=== PATIENT | female | born 1965 | race Caucasian/White ===

== ENCOUNTER → 2016-02-23 | Outpatient (CLI) | payer MEDICAID | LOC: RAD 16:19 | PROVIDERS: ATTEND Family Medicine | DX: M77.11 Lateral epicondylitis, right elbow (principal) ==

== ENCOUNTER 2016-03-28 09:28 | Emergency (ER) | payer MEDICAID ==
[2016-03-28] MEDS ORDERED: LIDOCAINE 5% (700 MG) TRANSDERMAL ADH..PATCH TP ONE (11:24)
--- NOTE | 2016-03-28 11:27 | ER Document Report ---
ED General - General Chief Complaint: Back Pain Stated Complaint: HIP LEG AND BACK PAIN TRAVEL OUTSIDE OF THE [place] IN LAST 30 DAYS: No - HPI Patient complains to provider of: right hip right back pain Notes: Patient states fall Sunday prior to arrival states ambulatory during the time however increasing pain and difficulty any ablation. Patient states she took a Percocet at home with no relief of her pain therefore came to the ER for further evaluation denies any loss consciousness during this fall denies any bowel or bladder incontinence denies numbness or tingling. - Related Data Allergies/Adverse Reactions: aspirin Allergy (Verified 03/28/16 10:05) Sulfa (Sulfonamide Antibiotics) Allergy (Verified 03/28/16 10:05) codeine [Codeine] Adverse Reaction (Verified 03/28/16 10:05) Past Medical History - Social History Smoking Status: Current Every Day Smoker Chew tobacco use (# tins/day): No Frequency of alcohol use: None Family History: Reviewed & Not Pertinent Patient has suicidal ideation: No Patient has homicidal ideation: No Renal/ Medical History: Denies: Hx Peritoneal Dialysis Past Surgical History: Reports: Hx Section - X3, Hx Cholecystectomy, Hx Tubal Ligation - Immunizations Immunizations up to date: Yes Hx Diphtheria, Pertussis, Tetanus Vaccination: Yes - 2012- tetanus Review of Systems - Review of Systems Constitutional: No symptoms reported EENT: No symptoms reported Cardiovascular: No symptoms reported Respiratory: No symptoms reported Gastrointestinal: No symptoms reported Genitourinary: No symptoms reported Female Genitourinary: No symptoms reported Musculoskeletal: Back pain Skin: No symptoms reported Hematologic/Lymphatic: No symptoms reported Neurological/Psychological: No symptoms reported -: Yes All other systems reviewed and negative Physical Exam - Vital signs Vitals: Temp Pulse Resp BP Pulse Ox 98.2 F 67 18 122/77 96 03/28/16 09:58 03/28/16 09:58 03/28/16 09:58 03/28/16 09:58 03/28/16 09:58 Interpretation: Normal - General General appearance: Appears well, Alert - HEENT Head: Normocephalic, Atraumatic Eyes: Normal Pupils: PERRL - Respiratory Respiratory status: No respiratory distress Chest status: Nontender Breath sounds: Normal Chest palpation: Normal - Cardiovascular Rhythm: Regular Heart sounds: Normal auscultation Murmur: No - Abdominal Inspection: Normal Distension: No distension Bowel sounds: Normal Tenderness: Nontender Organomegaly: No organomegaly - Back Back: Normal, Tender - Right paraspinal pain minimal pain to palpation of the right hip. No deformities no concerning etiologies - Extremities General upper extremity: Normal inspection, Nontender, Normal color, Normal ROM , Normal temperature General lower extremity: Normal inspection, Nontender, Normal color, Normal ROM , Normal temperature, Normal weight bearing. No: Nick's sign - Neurological Neuro grossly intact: Yes Cognition: Normal Orientation: AAOx4 Zoran Coma Scale Eye Opening: Spontaneous [place] Coma Scale Verbal: Oriented [place] Coma Scale Motor: Obeys Commands [place] Coma Scale Total: 15 Speech: Normal Motor strength normal: LUE, RUE, LLE, RLE Sensory: Normal Knee - Reflex grade: 2 = Normal - Psychological Associated symptoms: Normal affect, Normal mood - Skin Skin Temperature: Warm Skin Moisture: Dry Skin Color: Normal Course - Re-evaluation Re-evalutation: 03/28/16 20:40 Review the patient's narcotic database list show multiple prescriptions by her primary care provider Dr. Croft. Recommend patient follow-up with him for further pain control other than anti-inflammatories Tylenol and Lidoderm patches here otherwise states examination benign will discharge home The patient presents with low back pain without signs of spinal cord compression , cauda equina syndrome, infection, aneurysm, or other serious etiology. The patient is neurologically intact. Given the extremely low risk of these diagnoses further testing and evaluation for these possibilities does not appear to be indicated at this time. The patient has been instructed to return if the symptoms worsen or change in any way. .. - Vital Signs Vital signs: Temp Pulse Resp BP Pulse Ox 97.9 F 66 18 128/72 H 99 03/28/16 11:32 03/28/16 11:32 03/28/16 11:32 03/28/16 11:32 03/28/16 11:32 Discharge - Discharge Clinical Impression: Right leg pain Right low back pain Qualifiers: Chronicity: acute Sciatica presence: without sciatica Qualified Code(s): M54.5 - Low back pain Condition: Good Disposition: HOME, SELF-CARE Instructions: Ice Packs ([facility]), Low Back Pain ([facility]), Muscle Strain ([facility]), Warm Packs ([facility]), Anti-Inflammatory Medication ([facility]) Additional Instructions: Please follow-up with your primary care physician for further evaluation of your low back pain. You can take Tylenol and Motrin for your pain control at home. Return to the ER symptoms worsen. Prescriptions: Lidocaine [Lidoderm 5% (700 mg) Transdermal Patch] 1 patch TP DAILY #30 adh..patch Forms: Return to Work Referrals: OMAR CROFT DO [Primary Care Provider] - Follow up as needed
[2016-03-28 11:33] VITALS: BP 128/72
== END 2016-03-28 11:33 | disposition home or self-care (01) ==
LOC: ER 09:28
DX: M79.604 Pain in right leg (principal); M54.5 Low back pain; M54.9 Dorsalgia, unspecified; M25.551 Pain in right hip; F17.210 Nicotine dependence, cigarettes, uncomplicated
CPT/HCPCS: 99283; J3490

== ENCOUNTER 2017-05-26 06:32 | Observation (INO) | payer MEDICAID ==
--- NOTE | 2017-05-26 07:50 | ER Document Report ---
ED General - General Chief Complaint: Chest Pain > 30 Stated Complaint: CHEST PAIN Time Seen by Provider: 05/26/17 06:34 Mode of Arrival: Medic Information source: Patient Notes: 51-year-old female presents with complaints of chest pressure sensation associated with diaphoresis shortness of breath. Patient denies any fevers or chills notes pressure started an hour prior to arrival. Patient denies any similar episodes except when she was admitted here 3-4 years ago. Patient states she had a heart attack at that time but that she was not stented nor does she have a heart catheterization TRAVEL OUTSIDE OF THE [place] IN LAST 30 DAYS: No - HPI Onset: Just prior to arrival Onset/Duration: Sudden Quality of pain: Pressure Severity: Mild Pain Level: 1 Associated symptoms: Chest pain, Shortness of breath Exacerbated by: Denies Relieved by: Other - Nitroglycerin Similar symptoms previously: Yes Recently seen / treated by doctor: No - Related Data Allergies/Adverse Reactions: aspirin Allergy (Verified 03/28/16 10:05) Sulfa (Sulfonamide Antibiotics) Allergy (Verified 03/28/16 10:05) codeine [Codeine] Adverse Reaction (Verified 03/28/16 10:05) Past Medical History - Social History Smoking Status: Current Every Day Smoker Cigarette use (# per day): Yes Chew tobacco use (# tins/day): No Smoking Education Provided: Yes - Patient counselled regarding cessation for 4 minutes Frequency of alcohol use: None Family History: Reviewed & Not Pertinent Patient has suicidal ideation: No Patient has homicidal ideation: No - Past Medical History Cardiac Medical History: Reports: Hx Hypertension Renal/ Medical History: Denies: Hx Peritoneal Dialysis Past Surgical History: Reports: Hx Section - X3, Hx Cholecystectomy, Hx Tubal Ligation - Immunizations Immunizations up to date: Yes Hx Diphtheria, Pertussis, Tetanus Vaccination: Yes - 2012- tetanus Review of Systems - Review of Systems Notes: REVIEW OF SYSTEMS: CONSTITUTIONAL : Admits to sweating EENT: Denies eye, ear, throat, or mouth pain or symptoms. Denies nasal or sinus congestion or discharge. Denies throat, tongue, or mouth swelling or difficulty swallowing. CARDIOVASCULAR: Admits to chest pain RESPIRATORY: Admits shortness of breath GASTROINTESTINAL: Denies abdominal pain or distention. Denies nausea, vomiting , or diarrhea. Denies blood in vomitus, stools, or per rectum. Denies black, tarry stools. Denies constipation. GENITOURINARY: Denies difficulty urinating, painful urination, burning, frequency, blood in urine, or discharge. FEMALE GENITOURINARY: Denies vaginal bleeding, heavy or abnormal periods, irregular periods. Denies vaginal discharge or odor. MUSCULOSKELETAL: Denies back or neck pain or stiffness. Denies joint pain or swelling. SKIN: Denies rash, lesions or sores. HEMATOLOGIC : Denies easy bruising or bleeding. LYMPHATIC: Denies swollen, enlarged glands. NEUROLOGICAL: Denies confusion or altered mental status. Denies passing out or loss of consciousness. Denies dizziness or lightheadedness. Denies headache. Denies weakness or paralysis or loss of use of either side. Denies problems with gait or speech. Denies sensory loss, numbness, or tingling. Denies seizures. PSYCHIATRIC: Denies anxiety or stress. Denies depression, suicidal ideation, or homicidal ideation. ALL OTHER SYSTEMS REVIEWED AND NEGATIVE. PHYSICAL EXAMINATION: GENERAL: Well-appearing, well-nourished and in no acute distress. HEAD: Atraumatic, normocephalic. EYES: Pupils equal round and reactive to light, extraocular movements intact, conjunctiva are normal. ENT: Nares patent, oropharynx clear without exudates. Moist mucous membranes. NECK: Normal range of motion, supple without lymphadenopathy LUNGS: Breath sounds clear to auscultation bilaterally and equal. No wheezes rales or rhonchi. HEART: Regular rate and rhythm without murmurs ABDOMEN: Soft, nontender, nondistended abdomen. No guarding, no rebound. No masses appreciated. Female : deferred Musculoskeletal: Normal range of motion, no pitting or edema. No cyanosis. NEUROLOGICAL: Cranial nerves grossly intact. Normal speech, normal gait. Normal sensory, motor exams PSYCH: Normal mood, normal affect. SKIN: Warm, Dry, normal turgor, no rashes or lesions noted. Dictation was performed using [employer] voice recognition software Physical Exam - Vital signs Vitals: Resp 19 05/26/17 06:33 Course - Re-evaluation Re-evalutation: 05/26/17 07:49 Evaluation is quite benign at this time, patient is resting comfortably is pain- free, I did review her previous discharge and it appears they related her chest pain to anxiety no heart attack 05/26/17 08:51 lab workup notes no significant abnormality, patient looks well is in no distress at this time, patient will be admitted to the hospital service for observation - Vital Signs Vital signs: Temp Pulse Resp BP Pulse Ox 98.2 F 15 112/66 100 05/26/17 07:07 05/26/17 08:10 05/26/17 08:10 05/26/17 08:10 - Laboratory Result Diagrams: 05/26/17 06:45 05/26/17 06:45 Laboratory results interpreted by me: 05/26/17 05/26/17 06:45 06:45 WBC 12.3 H RDW 14.1 H Chloride 109 H - Diagnostic Test Radiology reviewed: Image reviewed - No acute abnormality, Reports reviewed - EKG Interpretation by Me EKG shows normal: Sinus rhythm, [place], Intervals, QRS Complexes Discharge - Discharge Clinical Impression: Chest pain Qualifiers: Chest pain type: unspecified Qualified Code(s): R07.9 - Chest pain, unspecified Hyperlipidemia Qualifiers: Hyperlipidemia type: unspecified Qualified Code(s): E78.5 - Hyperlipidemia, unspecified Condition: Stable Disposition: ADMITTED OBSERVATION Admitting Provider: Hospitalist Unit Admitted: Telemetry Referrals: OMAR REEVES DO [Primary Care Provider] - Follow up as needed
[2017-05-26 08:24] LABS: ABSOLUTE BASOPHILS # (AUTO) 0.1 10^3/uL (0.0-0.2); ABSOLUTE EOSINOPHILS # (AUTO) 0.2 10^3/uL (0.0-0.6); ABSOLUTE LYMPHOCYTES (AUTO) 3.3 10^3/uL (0.5-4.7); ABSOLUTE MONOCYTES (AUTO) 0.8 10^3/uL (0.1-1.4); ABSOLUTE NEUT (AUTO) 7.9 10^3/uL (1.7-8.2); ALANINE AMINOTRANSFERASE 29 U/L (9-52); ALBUMIN 4.1 g/dL (3.5-5.0); ALKALINE PHOSPHATASE 115 U/L (38-126); ANION GAP 7 (5-19); ASPARTATE AMINO TRANSFERASE 20 U/L (14-36); BASOPHILS % (AUTO) 0.7 % (0-2); BILIRUBIN,DIRECT 0.2 mg/dL (0.0-0.4); BILIRUBIN,TOTAL 0.6 mg/dL (0.2-1.3); BLOOD UREA NITROGEN 14 mg/dL (7-20); CALCIUM 9.6 mg/dL (8.4-10.2); CARBON DIOXIDE 26 mmol/L (22-30); CHLORIDE 109 mmol/L (98-107); CREATINE KINASE 74 U/L (30-135); EOSINOPHILS % (AUTO) 1.7 % (0-6); GLUCOSE 101 mg/dL (75-110); HEMATOCRIT 41.5 % (36.0-47.0); HEMOGLOBIN 13.6 g/dL (12.0-15.5); LYMPHOCYTES % (AUTO) 26.8 % (13-45); MEAN CORPUSCULAR HEMOGLOBIN 27.1 pg (27.0-33.4); MEAN CORPUSCULAR HGB CONC 32.9 g/dL (32.0-36.0); MEAN CORPUSCULAR VOLUME 82 fl (80-97); MONOCYTES % (AUTO) 6.7 % (3-13); PLATELET COUNT 373 10^3/uL (150-450); POTASSIUM 4.1 mmol/L (3.6-5.0); RED BLOOD COUNT 5.03 10^6/uL (3.72-5.28); RED CELL DISTRIBUTION WIDTH 14.1 % (11.5-14.0); SEGMENTED NEUTROPHILS % (AUTO) 64.1 % (42-78); SODIUM 141.8 mmol/L (137-145); TOTAL CELLS COUNTED % (AUTO) 100 %; TOTAL PROTEIN 6.7 g/dL (6.3-8.2); WHITE BLOOD COUNT 12.3 10^3/uL (4.0-10.5)
[2017-05-26 08:36] LABS: CREATINE KINASE MB 0.62 ng/mL (<4.55)
[2017-05-26 08:37] LABS: TROPONIN I < 0.012 ng/mL
--- NOTE | 2017-05-26 08:49 | RADIOLOGY REPORT (SQ) ---
EXAM DESCRIPTION: CHEST SINGLE VIEW COMPLETED DATE/TIME: 05/26/2017 8:23 am REASON FOR STUDY: chest pain COMPARISON: None. EXAM PARAMETERS: NUMBER OF VIEWS: One view. TECHNIQUE: Single frontal radiographic view of the chest acquired. RADIATION DOSE: NA LIMITATIONS: None. FINDINGS: LUNGS AND PLEURA: No opacities, masses or pneumothorax. No pleural effusion. MEDIASTINUM AND HILAR STRUCTURES: No masses. Contour normal. HEART AND VASCULAR STRUCTURES: Heart normal in size. Normal vasculature. BONES: No acute findings. HARDWARE: None in the chest. OTHER: No other significant finding. IMPRESSION: NO ACUTE RADIOGRAPHIC FINDING IN THE CHEST. TECHNICAL DOCUMENTATION: JOB ID: [id number] [employer]- All Rights Reserved Reading location - IP/workstation name: [email or web address]
[2017-05-26] MEDS ORDERED: NITROGLYCERIN 0.4 MG/TAB 25 TAB/BOTTLE SL PRN (08:52)
[2017-05-26] MEDS ORDERED: ACETAMINOPHEN 325 MG TABLET PO PRN (08:52)
[2017-05-26] MEDS ORDERED: ZOLPIDEM TARTRATE 5 MG TABLET PO PRN (08:52)
[2017-05-26] MEDS ORDERED: ALBUTEROL SULFATE 0.083% NEB 2.5 MG/3 ML AMPUL NEB PRN (08:52)
[2017-05-26] MEDS ORDERED: ONDANSETRON HCL INJ/PF 4 MG/2 ML SDV IV PRN (08:52)
[2017-05-26] MEDS: AZITHROMYCIN 250 MG TABLET PO SCH (09:50)
[2017-05-26] MEDS: DOCUSATE SODIUM 100 MG CAPSULE PO SCH (09:50)
--- NOTE | 2017-05-26 10:09 | EKG REPORT ---
SEVERITY:- NORMAL ECG - SINUS RHYTHM : Confirmed by: Margaret Haider 26-May-2017 10:08:02
[2017-05-26] MEDS: IPRATROPIUM/ALBUTEROL 0.5-2.5 MG/3 ML AMPUL NEB SCH ×2 (13:41→20:50)
[2017-05-26] MEDS: HEPARIN SOD (PORCINE) 5,000 UNIT/ML 1 ML SYRINGE SUBCUT SCH ×2 (14:29→21:21)
[2017-05-26] MEDS: OXYCODONE-ACETAMINOPHEN 5-325 MG TABLET PO PRN ×2 (15:08→19:35)
[2017-05-26] MEDS ORDERED: (PENDING PHARMACY ID) (Trazodone Hcl [Desyrel] 150 MG) PO PRN (16:12)
[2017-05-26] MEDS ORDERED: (PENDING PHARMACY ID) (Hydroxyzine Hcl [Atarax 25 Mg Tablet] 1 TAB) PO PRN (16:12)
--- NOTE | 2017-05-26 16:14 | PDOC H&P ---
History of Present Illness Admission Date/PCP: 05/26/17 08:58 OMAR REEVES DO Patient complains of: Chest pain prior to presenting emergency room History of Present Illness: ANISA CORBETT is a 51 year old female arrived to ED via ambulance on the day of evaluation. Patient states that while at work all of a sudden felt pain underneath her left breast that would go between the medial of her shoulder blades. It was accompanied by nausea and shortness of breath. She also relates having some sweatiness and. It was so intense that she had to step outside a coworker recommended her to smoke a cigarette however she felt that that was not safe. Since persistent called EMS. Pain subsided after she was given 1 nitro sublingual. Patient states that she had similar episode 3 years ago and she was hospitalized at this facility. Nuclear stress test was done and it was negative.She was diagnosed at that time as having high cholesterol. No medication had been prescribed although discussed the finding with her primary care provider. Patient smokes a half a pack of cigarettes daily. She also admits history of high blood pressure. Due to comordities the hospitalist service was consulted and prompted to admit. Past Medical History Cardiac Medical History: Reports: Hypertension Pulmonary Medical History: Reports: None EENT Medical History: Reports: None Neurological Medical History: Reports: None Endocrine Medical History: Reports: None Renal/ Medical History: Reports: None Malignancy Medical History: Reports: None GI Medical History: Reports: None Musculoskeltal Medical History: Reports: None Skin Medical History: Reports: None Psychiatric Medical History: Reports: Tobacco Dependency Traumatic Medical History: Reports: None Hematology: Reports: None Past Surgical History Past Surgical History: Reports: Section - X3, Cholecystectomy, Tubal Ligation Social History Information Source: Patient Smoking Status: Current Every Day Smoker Frequency of Alcohol Use: None Hx Recreational Drug Use: No Drugs: None - Advance Directive Resuscitation Status: Full Code Family History Family History: Reviewed & Not Pertinent, Hypertension Parental Family History Reviewed: Yes Children Family History Reviewed: Yes Sibling(s) Family History Reviewed.: Yes Medication/Allergy Home Medications: Dextroamphetamine/Amphetamine [Adderall 20 mg Tablet] 1 tab PO TID 08/19/14 Hydroxyzine HCl [Atarax 25 mg Tablet] 1 tab PO Q8HP PRN 05/26/17 Trazodone HCl [Desyrel] 150 mg PO HSP PRN 05/26/17 Venlafaxine HCl 37.5 mg PO BID 05/26/17 Allergies/Adverse Reactions: aspirin Allergy (Verified 05/26/17 15:32) Sulfa (Sulfonamide Antibiotics) Allergy (Verified 05/26/17 15:32) VOMITING codeine [Codeine] Adverse Reaction (Verified 05/26/17 15:32) Hives Review of Systems Constitutional: PRESENT: weakness, other - Sweatiness Ears: ABSENT: hearing changes Nose, Mouth, and Throat: ABSENT: mouth pain, sore throat Cardiovascular: PRESENT: chest pain. ABSENT: edema Gastrointestinal: PRESENT: nausea. ABSENT: abdominal pain Genitourinary: ABSENT: hematuria Neurological: PRESENT: weakness Endocrine: ABSENT: polyphagia, polyuria Physical Exam Vital Signs: Temp Pulse Resp BP Pulse Ox 98.1 F 17 127/66 H 99 05/26/17 10:01 05/26/17 10:01 05/26/17 10:01 05/26/17 10:01 General appearance: PRESENT: no acute distress, cooperative, well-developed, well-nourished Head exam: PRESENT: normocephalic Eye exam: PRESENT: conjunctiva pink, EOMI, PERRLA Mouth exam: PRESENT: moist Teeth exam: PRESENT: poor dentation Neck exam: PRESENT: full ROM. ABSENT: JVD, lymphadenopathy, tenderness Respiratory exam: PRESENT: clear to auscultation [place], decreased breath sounds Cardiovascular exam: PRESENT: RRR. ABSENT: diastolic murmur, systolic murmur GI/Abdominal exam: PRESENT: normal bowel sounds, soft. ABSENT: tenderness Extremities exam: PRESENT: full ROM. ABSENT: pedal edema Musculoskeletal exam: PRESENT: ambulatory Neurological exam: PRESENT: alert, awake, oriented to person, oriented to place , oriented to time, oriented to situation, CN II-XII grossly intact Psychiatric exam: PRESENT: appropriate affect, normal mood Skin exam: PRESENT: intact, normal color Results Impressions: Chest X-Ray 05/26/17 07:46 IMPRESSION: NO ACUTE RADIOGRAPHIC FINDING IN THE CHEST. Assessment & Plan - Diagnosis (1) Chest pain Qualifiers: Chest pain type: unspecified Qualified Code(s): R07.9 - Chest pain, unspecified Is this a current diagnosis for this admission?: Yes Plan: Appears to be atypical in nature however she does have a history of hyperlipidemia and smoking. Will be admitted to telemetry unit, trend troponin and order nuclear stress test (2) Hyperlipidemia Qualifiers: Hyperlipidemia type: unspecified Qualified Code(s): E78.5 - Hyperlipidemia , unspecified Is this a current diagnosis for this admission?: Yes Plan: Patient will be placed on Lipitor (3) Leukocytosis Is this a current diagnosis for this admission?: Yes Plan: Patient has been having productive cough, runny nose for a couple of days. Will place patient on DuoNeb's and Zithromax (4) Tobacco use disorder Is this a current diagnosis for this admission?: Yes Plan: To place a nicotine patch. Patient educated about quitting smoking - Time Time Spent: 30 to 50 Minutes Medications reviewed and adjusted accordingly: Yes Anticipated discharge: Home Within: within 24 hours - Inpatient Certification Based on my medical assessment, after consideration of the patient's comorbidities, presenting symptoms, or acuity I expect that the services needed warrant INPATIENT care.: Yes I certify that my determination is in accordance with my understanding of Medicare's requirements for reasonable and necessary INPATIENT services [42 CFR 412.3e].: Yes Medical Necessity: Need Close Monitoring Due to Risk of Patient Decompensation, Need For Continuous Telemetry Monitoring
[2017-05-26] MEDS ORDERED: TRAZODONE HCL 50 MG TABLET PO PRN (16:15)
[2017-05-26] MEDS ORDERED: HYDROXYZINE HCL 10 MG TABLET PO PRN (16:16)
[2017-05-26] MEDS ORDERED: (PENDING PHARMACY ID) (Venlafaxine Hcl [Venlafaxine Hcl] 37.5 MG) PO SCH (18:00)
[2017-05-26] MEDS ORDERED: (PENDING PHARMACY ID) (Dextroamphetamine/Amphetamine [Adderall 20 Mg Tablet] 1 TAB) PO SCH (18:00)
[2017-05-26] MEDS: NICOTINE 21 MG/24 HR PATCH.TD24 TD PRN (19:26)
[2017-05-26] MEDS: ATORVASTATIN CALCIUM 40 MG TABLET PO SCH (21:21)
[2017-05-26] MEDS ORDERED: VENLAFAXINE HCL 25 MG TABLET PO SCH (22:00)
[2017-05-27 04:48] LABS: ABSOLUTE BASOPHILS # (AUTO) 0.1 10^3/uL (0.0-0.2); ABSOLUTE EOSINOPHILS # (AUTO) 0.3 10^3/uL (0.0-0.6); ABSOLUTE LYMPHOCYTES (AUTO) 5.5 10^3/uL (0.5-4.7); ABSOLUTE MONOCYTES (AUTO) 0.8 10^3/uL (0.1-1.4); ABSOLUTE NEUT (AUTO) 4.2 10^3/uL (1.7-8.2); BASOPHILS % (AUTO) 1.2 % (0-2); EOSINOPHILS % (AUTO) 2.8 % (0-6); HEMATOCRIT 39.9 % (36.0-47.0); HEMOGLOBIN 13.1 g/dL (12.0-15.5); LYMPHOCYTES % (AUTO) 50.2 % (13-45); MEAN CORPUSCULAR HEMOGLOBIN 26.9 pg (27.0-33.4); MEAN CORPUSCULAR HGB CONC 32.9 g/dL (32.0-36.0); MEAN CORPUSCULAR VOLUME 82 fl (80-97); MONOCYTES % (AUTO) 7.4 % (3-13); PLATELET COUNT 320 10^3/uL (150-450); RED BLOOD COUNT 4.87 10^6/uL (3.72-5.28); RED CELL DISTRIBUTION WIDTH 13.7 % (11.5-14.0); SEGMENTED NEUTROPHILS % (AUTO) 38.4 % (42-78); TOTAL CELLS COUNTED % (AUTO) 100 %; WHITE BLOOD COUNT 11.1 10^3/uL (4.0-10.5)
[2017-05-27 05:10] LABS: ANION GAP 9 (5-19); BLOOD UREA NITROGEN 12 mg/dL (7-20); CALCIUM 9.2 mg/dL (8.4-10.2); CARBON DIOXIDE 23 mmol/L (22-30); CHLORIDE 110 mmol/L (98-107); GLUCOSE 91 mg/dL (75-110); POTASSIUM 4.2 mmol/L (3.6-5.0); SODIUM 141.5 mmol/L (137-145)
[2017-05-27] MEDS: HEPARIN SOD (PORCINE) 5,000 UNIT/ML 1 ML SYRINGE SUBCUT SCH ×3 (06:04→21:04)
[2017-05-27] MEDS: IPRATROPIUM/ALBUTEROL 0.5-2.5 MG/3 ML AMPUL NEB SCH ×3 (07:47→20:38)
[2017-05-27] MEDS: OXYCODONE-ACETAMINOPHEN 5-325 MG TABLET PO PRN (09:03)
[2017-05-27] MEDS: AZITHROMYCIN 250 MG TABLET PO SCH (09:04)
[2017-05-27] MEDS: DOCUSATE SODIUM 100 MG CAPSULE PO SCH (09:04)
[2017-05-27] MEDS ORDERED: VENLAFAXINE HCL 25 MG TABLET PO SCH (09:28)
[2017-05-27] MEDS ORDERED: LANSOPRAZOLE 30 MG TAB.RAP.DR PO ONE (10:15)
[2017-05-27] MEDS ORDERED: VENLAFAXINE HCL 75 MG TABLET PO ONE (11:30)
[2017-05-27] MEDS ORDERED: TIZANIDINE HCL 4 MG TABLET PO ONE (11:30)
--- NOTE | 2017-05-27 11:30 | RADIOLOGY REPORT (SQ) ---
EXAM DESCRIPTION: CERV SP 3 VIEW OR LESS COMPLETED DATE/TIME: 05/27/2017 10:51 am REASON FOR STUDY: neck pain COMPARISON: 05/31/2013 NUMBER OF VIEWS: Five views including obliques. TECHNIQUE: AP, lateral, obliques and odontoid radiographic images acquired of the cervical spine. LIMITATIONS: None. FINDINGS: MINERALIZATION: Normal. SEGMENTATION: Normal. ALIGNMENT: Normal. [place]: Maintained height. No fracture or worrisome bone lesion. DISCS: Disc space narrowing and osteophyte formation C6-7. POSTERIOR ELEMENTS: Pedicles and facets are intact. No posterior arch defects. Facet arthropathy is present. FORAMINA: Narrowed at the levels of maximal disc and facet disease. HARDWARE: None in the spine. PARASPINAL SOFT TISSUES: Normal. OTHER: No other significant finding. IMPRESSION: Cervical disc disease C6- 7. No significant change. TECHNICAL DOCUMENTATION: JOB ID: [id number] [employer]- All Rights Reserved Reading location - IP/workstation name: [email or web address]
--- NOTE | 2017-05-27 12:06 | PDOC PROGRESS REPORT ---
Subjective Progress Note for:: 05/27/17 Subjective:: Patient states the heart chest pain while going on for the stress test. Accordingly problem started after she ate a sausage. The pain resolved by the time which she returned to the floor but has been having headache and neck pain. Patient also complains of pain in the middle of her back. Reason For Visit: CHEST PAIN Physical Exam Vital Signs: Temp Pulse Resp BP Pulse Ox 97.8 F 66 12 104/60 100 05/27/17 09:02 05/27/17 09:02 05/27/17 09:02 05/27/17 09:02 05/27/17 09:02 Intake & Output 05/26/17 05/27/17 05/28/17 06:59 06:59 06:59 Intake Total 970 Balance 970 Weight 66.4 kg General appearance: PRESENT: cooperative, well-developed, well-nourished Head exam: PRESENT: atraumatic, normocephalic Eye exam: PRESENT: conjunctiva pink, EOMI, PERRLA Ear exam: PRESENT: normal external ear exam Neck exam: PRESENT: full ROM, tenderness - Pain upon palpation paracervical muscles and trapezius. ABSENT: JVD, lymphadenopathy Respiratory exam: PRESENT: clear to auscultation [place] Cardiovascular exam: PRESENT: RRR. ABSENT: diastolic murmur, systolic murmur GI/Abdominal exam: PRESENT: normal bowel sounds, soft. ABSENT: tenderness Extremities exam: PRESENT: full ROM. ABSENT: pedal edema, tenderness Musculoskeletal exam: PRESENT: ambulatory Neurological exam: PRESENT: alert, awake, oriented to person, oriented to place , oriented to time, oriented to situation, CN II-XII grossly intact Skin exam: PRESENT: normal color Results Laboratory Results: 05/27/17 03:47 05/27/17 03:47 05/27/17 05/27/17 03:47 03:47 WBC 11.1 H RBC 4.87 Hgb 13.1 Hct 39.9 MCV 82 MCH 26.9 L MCHC 32.9 RDW 13.7 Plt Count 320 Seg Neutrophils % 38.4 L Lymphocytes % 50.2 H Monocytes % 7.4 Eosinophils % 2.8 Basophils % 1.2 Absolute Neutrophils 4.2 Absolute Lymphocytes 5.5 H Absolute Monocytes 0.8 Absolute Eosinophils 0.3 Absolute Basophils 0.1 Sodium 141.5 Potassium 4.2 Chloride 110 H Carbon Dioxide 23 Anion Gap 9 BUN 12 Creatinine 0.66 Est GFR ( Amer) > 60 Est GFR (Non-Af Amer) > 60 Glucose 91 Calcium 9.2 Magnesium 2.1 05/26/17 05/26/17 05/27/17 12:10 18:30 00:36 Troponin I < 0.012 < 0.012 < 0.012 Impressions: Chest X-Ray 05/26/17 07:46 IMPRESSION: NO ACUTE RADIOGRAPHIC FINDING IN THE CHEST. Assessment & Plan - Diagnosis (1) Chest pain Qualifiers: Chest pain type: unspecified Qualified Code(s): R07.9 - Chest pain, unspecified Is this a current diagnosis for this admission?: Yes Plan: Repeat troponins which I expect will be negative and expect to finalize test in a.m. To add PPI to cover for GI problems such as reflux (2) Hyperlipidemia Qualifiers: Hyperlipidemia type: unspecified Qualified Code(s): E78.5 - Hyperlipidemia , unspecified Is this a current diagnosis for this admission?: Yes Plan: Will continue Lipitor (3) Leukocytosis Qualifiers: Leukocytosis type: unspecified Qualified Code(s): D72.829 - Elevated white blood cell count, unspecified Is this a current diagnosis for this admission?: Yes Plan: Patient has been having productive cough, runny nose for a couple of days. Continue DuoNeb's and Zithromax (4) Tobacco use disorder Is this a current diagnosis for this admission?: Yes Plan: Continue nicotine patch. Patient educated about quitting smoking (5) Neck pain Is this a current diagnosis for this admission?: Yes Plan: Appears to be musculoskeletal. To muscle relaxer. To order cervical spine x- rays. - Time Time Spent with patient: 15-24 minutes Medications reviewed and adjusted accordingly: Yes Anticipated discharge: Home Within: within 24 hours - Inpatient Certification Based on my medical assessment, after consideration of the patient's comorbidities, presenting symptoms, or acuity I expect that the services needed warrant INPATIENT care.: Yes I certify that my determination is in accordance with my understanding of Medicare's requirements for reasonable and necessary INPATIENT services [42 CFR 412.3e].: Yes Medical Necessity: Need Close Monitoring Due to Risk of Patient Decompensation, Need For Continuous Telemetry Monitoring, Need for Pain Control
[2017-05-27] MEDS: TIZANIDINE HCL 4 MG TABLET PO SCH (17:56)
[2017-05-27] MEDS: NICOTINE 21 MG/24 HR PATCH.TD24 TD PRN (18:00)
[2017-05-27] MEDS: ATORVASTATIN CALCIUM 40 MG TABLET PO SCH (21:04)
[2017-05-27] MEDS: VENLAFAXINE HCL 75 MG TABLET PO SCH (21:10)
[2017-05-27] MEDS ORDERED: QUETIAPINE FUMARATE 25 MG TABLET PO SCH (22:00)
[2017-05-28] MEDS: HEPARIN SOD (PORCINE) 5,000 UNIT/ML 1 ML SYRINGE SUBCUT SCH ×2 (04:22→14:46)
[2017-05-28] MEDS ORDERED: LANSOPRAZOLE 30 MG TAB.RAP.DR PO SCH (06:00)
[2017-05-28] MEDS: IPRATROPIUM/ALBUTEROL 0.5-2.5 MG/3 ML AMPUL NEB SCH ×2 (08:14→13:39)
[2017-05-28] MEDS: TIZANIDINE HCL 4 MG TABLET PO SCH (10:09)
[2017-05-28] MEDS: AZITHROMYCIN 250 MG TABLET PO SCH (10:09)
[2017-05-28] MEDS: VENLAFAXINE HCL 75 MG TABLET PO SCH (10:10)
[2017-05-28] MEDS: DOCUSATE SODIUM 100 MG CAPSULE PO SCH (10:10)
[2017-05-28] MEDS ORDERED: AMINOPHYLLINE INJ/PF 250 MG/10 ML SDV IV ONE (10:57)
[2017-05-28] MEDS ORDERED: REGADENOSON INJ 0.4 MG/5 ML DISP.SYRIN IV ONE (10:59)
--- NOTE | 2017-05-28 11:21 | DRAGON STRESS TEST REPORT ---
INTRAVENOUS LEXISCAN CARDIOLITE STRESS TEST USING SINGLE PHOTON EMMISION COMPUTERIZED TOMOGRAPHIC. DATE OF PROCEDURE: May 28, 2017, INDICATION : Chest pain CARDIAC RISK FACTORS: Dyslipidemia, tobacco abuse RESTING EKG: Sinus rhythm without any baseline ST-T wave changes. STRESS EKG: No significant ST segment changes noted with LexiScan bolus REASON FOR TERMINATION: Protocol. PROCEDURE REPORT: Baseline heart rate 62 beats per minute with blood pressure of 113/66. Patient had no significant complaints. Patient was bolused with Lexiscan 0.4 mg intravenously followed by saline bolus. Heart rate at 2 minutes post bolus 114 with a blood pressure of 116/69. 3 minutes post bolus heart rate 73 with blood pressure of 112/65. No significant EKG changes were noted. Patient had no significant complaints during the procedure or postprocedure. Patient injected with Aminophyllin 75 mg at 3 minutes or later after Lexiscan bolus. CONCLUSIONS: Normal EKG and hemodynamic response to IV LexiScan. NUCLEAR DATA: At rest the patient was given 10.26 millicuries of technetium 99 sestamibi injected intravenously. As per protocol rest gated SPECT images were obtained. On day of stress test, the patient was given intravenous LexiScan at a dose of 0.4 mg in 5 mL intravenously, followed by flush with normal saline. Subsequently the stress dose of 32.4 millicuries of technetium 99 sestamibi was injected intravenously. As per protocol stress gated images were obtained. NUCLEAR INTERPRETATION: Both raw and processed data were used for interpretation. Visual, qualitative, computer-generated quantitative data was used. There was good myocardial uptake of technetium compound. Motion artifact and soft tissue attenuations were noted. Increased visceral uptake was noted. No definitive areas of transient perfusion defect noted, No definitive areas of fixed perfusion defect or scars noted. EKG gated imaging showed LV EF at 51 %, rest and stress gated EF similar visually. T. I D. ratio was 1.71. Lung heart ratio noted to be within normal limits 0.46. No significant extracardiac and abnormal radiotracer activities were noted. RV free wall uptake was noted to be WNL. IMPRESSION: Also refer to comments under nuclear interpretation. Also test results needs to be interpreted in the context of pretest probability. 1. No definitive areas of transient perfusion defect noted. 2. There is no definitive scintigraphic evidence of myocardial infarction/scar. 3. EKG gated imaging shows left ventricular ejection fraction of approx. 51 %. 4. Transient ischemic dilatation noted. This could be a processing error. Most recent literature review, journal of nuclear medicine May 2013, indicates that transient ischemic dilatation does not necessarily lead to increased cardiovascular event rate in the absence of significant perfusion abnormalities. However clinical correlation requested as occasionally balanced ischemia could be missed. In approximately 10% of the cases Lexiscan may not cause adequate vasodilatory stress. May also consider further evaluation and risk stratification with a cardiac CTA, or chest CTA and calcium score of the coronary arteries. RECOMMENDATIONS: Aggressive risk factor modification and medical management. Further evaluation may be needed if continued symptoms or other high risk indicators are noted on clinical evaluation. Close cardiology follow-up is also recommended. Clinical correlation with echocardiogram derived ejection fraction. Inability to exercise by itself can lead to increased cardiovascular event risks. Consider cardiology consultation and or follow-up if clinically indicated. I am available for cardiology evaluation and consultation if requested by the custodian supervisor, unless patient already has a lopper. CIARAN
[2017-05-28 16:07] VITALS: BP 99/53
--- NOTE | 2017-05-28 18:01 | PDOC DISCHARGE SUMMARY ---
General - Admit/Disc Date/PCP Admission Date/Primary Care Provider: 05/26/17 08:58 OMAR REEVES, Discharge Date: 05/28/17 - Discharge Diagnosis (1) Chest pain Is this a current diagnosis for this admission?: Yes (2) Hyperlipidemia Is this a current diagnosis for this admission?: Yes (3) Leukocytosis Is this a current diagnosis for this admission?: Yes (4) Tobacco use disorder Is this a current diagnosis for this admission?: Yes (5) Neck pain Is this a current diagnosis for this admission?: Yes (6) Bronchitis Is this a current diagnosis for this admission?: Yes (7) Cervical disc disease Is this a current diagnosis for this admission?: Yes - Additional Information Resuscitation Status: Full Code Discharge Diet: Cardiac Discharge Activity: Activity As Tolerated Prescriptions: Atorvastatin Calcium [Lipitor 40 mg Tablet] 40 mg PO QHS #30 tablet Azithromycin [Zithromax 250 mg Tablet] 500 mg PO DAILY #6 tablet Fluticasone/Salmeterol [Advair 250-50 Diskus 28 dose] 1 inh IH Q12H #1 inhaler Quetiapine Fumarate [Seroquel 25 mg Tablet] 50 mg PO QHS #30 tablet Tizanidine HCl [Zanaflex 4 mg Tablet] 4 mg PO BID #14 tablet Venlafaxine HCl [Effexor 75 mg Tablet] 75 mg PO Q12 #60 tablet Home Medications: Dextroamphetamine/Amphetamine [Adderall 20 mg Tablet] 1 tab PO TID 08/19/14 Hydroxyzine HCl [Atarax 25 mg Tablet] 1 tab PO Q8HP PRN 05/26/17 Atorvastatin Calcium [Lipitor 40 mg Tablet] 40 mg PO QHS #30 tablet 05/28/17 Azithromycin [Zithromax 250 mg Tablet] 500 mg PO DAILY #6 tablet 05/28/17 Fluticasone/Salmeterol [Advair 250-50 Diskus 28 dose] 1 inh IH Q12H #1 inhaler 05/28/17 Quetiapine Fumarate [Seroquel 25 mg Tablet] 50 mg PO QHS #30 tablet 05/28/17 Tizanidine HCl [Zanaflex 4 mg Tablet] 4 mg PO BID #14 tablet 05/28/17 Venlafaxine HCl [Effexor 75 mg Tablet] 75 mg PO Q12 #60 tablet 05/28/17 History of Present Illness History of Present Illness: ANISA CORBETT is a 51 year old female arrived to ED via ambulance on the day of evaluation. Patient states that while at work all of a sudden felt pain underneath her left breast that would go between the medial of her shoulder blades. It was accompanied by nausea and shortness of breath. She also relates having some sweatiness and. It was so intense that she had to step outside a coworker recommended her to smoke a cigarette however she felt that that was not safe. Since persistent called EMS. Pain subsided after she was given 1 nitro sublingual. Patient states that she had similar episode 3 years ago and she was hospitalized at this facility. Nuclear stress test was done and it was negative.She was diagnosed at that time as having high cholesterol. No medication had been prescribed although discussed the finding with her primary care provider. Patient smokes a half a pack of cigarettes daily. She also admits history of high blood pressure. Due to comordities the hospitalist service was consulted and prompted to admit. Hospital Course Hospital Course: Patient was admitted to telemetry unit. There were no cardiac dysrhythmia. Troponin was trended and negative. Patient experienced a short bout of chest pain on May 27 when she went to get a nuclear stress test with further delay of testing. Another set of troponin was ordered and was negative. At that point in time patient complained of neck pain which improved when placed on muscle relaxer. X-rays of cervical spine showed cervical disc disease at C6-C7. Patient underwent nuclear stress test on May 28 with no EKG changes suggestive of ischemia. However of concern was that EF was around 50%. Recommendation was for lifestyle modification with reduction of risk factors. Patient will require follow-up with cardiology and patient has been advised in that regard. We discharged patient on Lipitor 40 mg p.o. daily. Also during this hospitalization patient complained of her nerve medications not working and they were adjusted. We discontinued trazodone and placed her on Seroquel and went up on Effexor dose to 75 mg 1 p.o. twice daily. On presentation patient displayed symptoms of bronchitis. I am quite inclined to think that patient may be having COPD however she will need further testing in this regard. We placed her on Advair and Zithromax. Recommend primary care provider to follow- up response. Since patient had achieved maximum benefit of hospitalization stay prompted to discharge under stable condition Physical Exam Vital Signs: Temp Pulse Resp BP Pulse Ox 98.1 F 59 L 13 108/42 L 98 05/28/17 12:29 05/28/17 12:29 05/28/17 12:29 05/28/17 12:29 05/28/17 12:29 Intake & Output 05/27/17 05/28/17 05/29/17 06:59 06:59 06:59 Intake Total 970 1387 Balance 970 1387 Weight 66.4 kg 64 kg 64 kg General appearance: PRESENT: no acute distress, cooperative, well-developed, well-nourished Head exam: PRESENT: atraumatic, normocephalic Eye exam: PRESENT: conjunctiva pink, EOMI, PERRLA Ear exam: PRESENT: normal external ear exam Mouth exam: PRESENT: moist Neck exam: PRESENT: full ROM. ABSENT: JVD, lymphadenopathy, tenderness Respiratory exam: PRESENT: clear to auscultation [place] Cardiovascular exam: PRESENT: RRR. ABSENT: diastolic murmur, systolic murmur Vascular exam: PRESENT: normal capillary refill GI/Abdominal exam: PRESENT: normal bowel sounds, soft. ABSENT: tenderness Extremities exam: PRESENT: full ROM, pedal edema Musculoskeletal exam: PRESENT: ambulatory Neurological exam: PRESENT: alert, awake, oriented to person, oriented to place , oriented to time, oriented to situation, CN II-XII grossly intact Psychiatric exam: PRESENT: appropriate affect, normal mood Skin exam: PRESENT: intact, normal color Results Laboratory Results: 05/27/17 03:47 05/27/17 03:47 05/26/17 05/26/17 05/27/17 12:10 18:30 00:36 Troponin I < 0.012 < 0.012 < 0.012 05/27/17 05/27/17 05/27/17 09:56 14:58 21:21 Troponin I < 0.012 < 0.012 < 0.012 05/28/17 03:24 Troponin I < 0.012 Impressions: Chest X-Ray 05/26/17 07:46 IMPRESSION: NO ACUTE RADIOGRAPHIC FINDING IN THE CHEST. Cervical Spine X-Ray 05/27/17 00:00 IMPRESSION: Cervical disc disease C6- 7. No significant change. Qualifiers - * P[place]INT BEING DISCHARGED WITH ANY OF THE FOLLOWING DIAGNOSIS?: No Plan Discharge Plan: Patient to be discharged home since stable. She has been advised to follow-up with her primary care provider. Patient has also encouraged to follow-up with Dr. Haider as she will need continuation of cardiac evaluation as outpatient Time Spent: Less than 30 Minutes
== END 2017-05-28 16:36 | disposition home or self-care (01) ==
LOC: ER 06:32 → EH 08:58 → 5 11:41
PROVIDERS: ADMIT Family Medicine; ATTEND Family Medicine
PROC: HZ31ZZZ Individual Counseling for Substance Abuse Treatment, Behavioral (ICD-10-PCS; principal; 2017-05-26)
DX: R07.89 Other chest pain (principal); E78.5 Hyperlipidemia, unspecified; D72.829 Elevated white blood cell count, unspecified; J40 Bronchitis, not specified as acute or chronic; R11.0 Nausea; R06.02 Shortness of breath; R61 Generalized hyperhidrosis; R53.1 Weakness; F17.210 Nicotine dependence, cigarettes, uncomplicated; R05 Cough; M50.823 Other cervical disc disorders at C6-C7 level; R09.89 Other specified symptoms and signs involving the circulatory and respiratory systems; R51 Headache; M54.89 Other dorsalgia; I25.2 Old myocardial infarction; Z90.49 Acquired absence of other specified parts of digestive tract; Z98.51 Tubal ligation status; Z82.49 Family history of ischemic heart disease and other diseases of the circulatory system
CPT/HCPCS: 93005; 99285; 36415 ×3; 82553; 82550; 83735; 85025 ×2; 80048; 80053; 84484 ×3; 93017; 72040; 71045; 78452; 93010; 94640 ×3; 99406; A9500; J2785; J3490 ×8; J1644 ×2; Q0144 ×3; J2405; J0280; J7620 ×3; Q9969

== ENCOUNTER 2019-12-17 10:21 | Emergency (ER) | payer MEDICAID, OTHER ==
[2019-12-17 10:31] VITALS: BP 132/87
[2019-12-17] MEDS ORDERED: HYDROCODONE/ACETAMINOPHEN 5-325 MG TABLET PO ONE (11:17)
--- NOTE | 2019-12-17 11:19 | ER Document Report ---
HPI - HPI Patient complains to provider of: foot injury Time Seen by Provider: 12/17/19 11:13 Pain Level: 4 Notes: 53-year-old female to the emergency department with complaints of a foot injury that occurred this morning. She states she was at work and she tripped over some hoses that were not put away appropriately. She states her right foot got hung up in the house but her left foot bent back on itself and she felt a pop. She states that she is not been able to bear weight on the foot since then. She states it is beginning to swell and it really hurts over the lateral aspect of the foot. She is not taking anything prior to arrival. She denies any other injuries. She did not have loss of consciousness or hit her head. - ROS Systems Reviewed and Negative: Yes All other systems reviewed and negative - CONSTITUTIONAL Constitutional: DENIES: Fever, Chills - EENT EENT: DENIES: Sore Throat, Ear Pain, Congestion - NEURO Neurology: DENIES: Headache - CARDIOVASCULAR Cardiovascular: DENIES: Chest pain - RESPIRATORY Respiratory: DENIES: Trouble Breathing, Coughing - GASTROINTESTINAL Gastrointestinal: DENIES: Abdominal Pain, Nausea, Patient vomiting, Diarrhea - MUSCULOSKELETAL Musculoskeletal: REPORTS: Extremity pain - Left foot pain and swelling. DENIES: Back Pain, Neck Pain - DERM Skin Color: Normal Notes: Bruising of the left foot Past Medical History - General Information source: Patient - Social History Smoking Status: Current Every Day Smoker Frequency of alcohol use: Social Drug Abuse: None Family History: Reviewed & Not Pertinent, Hypertension Patient has homicidal ideation: No - Past Medical History Cardiac Medical History: Reports: Hx Hypertension Renal/ Medical History: Denies: Hx Peritoneal Dialysis Psychiatric Medical History: Reports: Hx Depression Past Surgical History: Reports: Hx Section - X3, Hx Cholecystectomy, Hx Tubal Ligation - Immunizations Immunizations up to date: Yes Hx Diphtheria, Pertussis, Tetanus Vaccination: Yes - 2012- tetanus Vertical Provider Document - CONSTITUTIONAL General Appearance: WD/WN, Mild Distress Notes: Mild pain distress. Patient has the left foot elevated - INFECTION CONTROL TRAVEL OUTSIDE OF THE [place] IN LAST 30 DAYS: No - HEENT HEENT: Atraumatic, Normocephalic, PERRLA - NECK Neck: Normal Inspection, Supple - RESPIRATORY Respiratory: Breath Sounds Normal, No Respiratory Distress. negative: Rales, Rhonchi, Wheezing - CARDIOVASCULAR Cardiovascular: Regular Rate, Regular Rhythm, No Murmur - GI/ABDOMEN Gastrointestinal: Abdomen Soft, Abdomen Non-Tender, No Organomegaly - BACK Back: Normal Inspection - MUSCULOSKELETAL/EXTREMETIES Notes: Tenderness to palpation to the lateral aspect of the left foot with noted evolving ecchymosis. There is also tenderness to palpation to the plantar surface of the foot. Patient can wiggle all toes. She has increased pain and decreased range of motion in dorsiflexion and plantar flexion against resistance approximately a 4 out of 5 likely due to pain. DP pulses intact and equal. Left ankle nontender to palpation, as well as left knee and left hip. - NEURO Level of Consciousness: Awake, Alert, Appropriate Motor/Sensory: No Motor Deficit, No Sensory Deficit - DERM Integumentary: Warm, Dry Notes: Evolving ecchymosis to the lateral dorsum of the left foot. See MS for further discussion of the foot Course - Re-evaluation Re-evalutation: Impression: Left foot comminuted fractures of the fourth and fifth metatarsals. Patient will be placed in a splint and on crutches. She is to be nonweightbearing. She will be sent home with pain medicine and has been encouraged to follow-up with orthopedist without fail. She is also been told that she cannot return to work until she has clearance from the orthopedist. Encouraged to return if she has any worsening symptoms. Encouraged to ice and elevate the foot as well. - Vital Signs Vital signs: Temp Pulse Resp BP Pulse Ox 98.0 F 70 16 132/87 H 100 12/17/19 10:30 12/17/19 10:30 12/17/19 10:30 12/17/19 10:30 12/17/19 10:30 - Diagnostic Test Radiology reviewed: Image reviewed, Reports reviewed Procedures - Immobilization Left Foot Pre-Proc Neuro Vasc Exam: Normal Immobilizer type: Posterior ankle Performed by: PCT Post-Proc Neuro Vasc Exam: Normal Alignment checked and good: Yes Discharge - Discharge Clinical Impression: Left foot pain Fracture of fifth metatarsal bone of left foot Qualifiers: Encounter type: initial encounter Fracture type: closed Fracture alignment: displaced Qualified Code(s): S92.352A - Displaced fracture of fifth metatarsal bone, left foot, initial encounter for closed fracture Fracture of fourth metatarsal bone of left foot Qualifiers: Encounter type: initial encounter Fracture type: closed Fracture alignment: displaced Qualified Code(s): S92.342A - Displaced fracture of fourth metatarsal bone, left foot, initial encounter for closed fracture Condition: Stable Disposition: HOME, SELF-CARE Instructions: Foot Fracture ([facility]) Additional Instructions: Today the x-ray shows that you have a fourth and fifth metatarsal fracture of the left foot. You must wear your splint without fail. You must use crutches. No weightbearing. You need to follow-up with orthopedist without fail. Take pain medicine as prescribed. Keep the foot elevated. You may ice it but the splint cannot get wet. Icing can be up to 20 minutes at a time 3 times a day. Return if worsening symptoms such as fever, streaking redness, worsening pain. Prescriptions: Hydrocodone/Acetaminophen [[place] 5-325 mg Tablet] 1 tab PO Q6H #12 tablet Forms: Special Work Note Referrals: OMAR REEVES DO [Primary Care Provider] - Follow up in 1 week BAR ARRIAGA JR, DO [ACTIVE PROVISIONAL STAFF] - Follow up tomorrow (for orthopedic follow up)
--- NOTE | 2019-12-17 11:51 | RADIOLOGY REPORT (SQ) ---
EXAM DESCRIPTION: FOOT LEFT COMPLETE IMAGES COMPLETED DATE/TIME: 12/17/2019 11:43 am REASON FOR STUDY: foot injury COMPARISON: 04/27/2013 NUMBER OF VIEWS: Three views. TECHNIQUE: AP, lateral and oblique radiographic images acquired of the left foot. LIMITATIONS: None. FINDINGS: MINERALIZATION: Normal. BONES: Oblique fractures through the mid 4th and 5th metatarsals. Both fractures are comminuted. On the lateral images the distal fragments appears slightly dorsally displaced. The 5th distal fragmen t is also displaced medially. JOINTS: No effusions. SOFT TISSUES: No soft tissue swelling. No foreign body. OTHER: No other significant finding. IMPRESSION: Comminuted slightly displaced fractures of the 4th and 5th mid to distal metatarsals. TECHNICAL DOCUMENTATION: JOB ID: [id number] 2010 [employer]- All Rights Reserved Reading location - IP/workstation name: [email or web address]
== END 2019-12-17 12:39 | disposition home or self-care (01) ==
LOC: ER 10:21
DX: S92.352A Displaced fracture of fifth metatarsal bone, left foot, initial encounter for closed fracture (principal); S92.342A Displaced fracture of fourth metatarsal bone, left foot, initial encounter for closed fracture; W01.0XXA Fall on same level from slipping, tripping and stumbling without subsequent striking against object, initial encounter; Y99.0 Civilian activity done for income or pay; F17.200 Nicotine dependence, unspecified, uncomplicated; I10 Essential (primary) hypertension; Z90.49 Acquired absence of other specified parts of digestive tract; Z98.51 Tubal ligation status
CPT/HCPCS: 96360; 99285